=== PATIENT | female | born 1975 | race African-American/Black ===

== ENCOUNTER 2024-01-03 07:55 | Emergency (ER) | payer OTHER ==
[~2024-01-03] VITALS: Ht 172.7 cm; Wt 83.1 kg
[2024-01-03 08:01] VITALS: BP 134/83; PULSE 73; RESP 16; TEMP 97.5; O2SAT 100
== END 2024-01-03 11:14 | disposition left against medical advice (07) ==
LOC: ER 07:56
DX: R42 Dizziness and giddiness (principal); Z53.21 Procedure and treatment not carried out due to patient leaving prior to being seen by health care provider